=== PATIENT | male | born 1955 | race Caucasian/White ===

== ENCOUNTER 2017-08-28 00:05 | Emergency (ER) | payer OTHER ==
--- NOTE | 2017-08-28 00:40 | ER Document Report ---
ED Cardiac <SMITH RINCON - Last Filed: 08/28/17 08:03> - General Mode of Arrival: Ambulatory Information source: Patient TRAVEL OUTSIDE OF THE [place]. IN LAST 30 DAYS: No <LEE ANN ODELL - Last Filed: 08/31/17 22:08> - General Chief Complaint: Chest Pain Stated Complaint: CHEST PAIN Time Seen by Provider: 08/28/17 00:39 Notes: 62 yo smoker, non htn, non dm, hyperlipedemic, CAD, 2 cardiac stents placed 13 years ago at [facility] (mild [place]), (last cardiac eval 11 years ago) Went to bed at 2130, chest pain, bilateral shoulders to elbows woke him up at 2330. Took 2 - 325 asa, sat around, wouldn't stop. Noticed last week or two gets dizzy when he tilts head back with drink of water. At this time has some tightness superior upper chest below neck. Has had increased fatique and SOB with exertion for 1-2 months. Meds: hctz 25 mg daily, metoprolol 50mg bid, lisinipril 20mg qd, atorvastatin 20mg daily. No recent URI , no fever. No abd pain. Unknown EKG to compare-none done recently. (LEE ANN ODELL) - Related Data Allergies/Adverse Reactions: No Known Allergies Allergy (Unverified 08/28/17 00:24) Past Medical History - Social History Smoking Status: Current Every Day Smoker Lives with: Family Family History: Reviewed & Not Pertinent Patient has suicidal ideation: No Patient has homicidal ideation: No Renal/ Medical History: Denies: Hx Peritoneal Dialysis <LEE ANN ODELL - Last Filed: 08/31/17 22:08> - Vital signs Vitals: Resp Pulse Ox 29 H 96 08/28/17 00:41 08/28/17 00:41 Course - Laboratory Result Diagrams: 08/28/17 00:33 08/28/17 00:33 <SMITH RINCON - Last Filed: 08/28/17 08:03> - Laboratory Result Diagrams: 08/28/17 00:33 08/28/17 00:33 - EKG Interpretation by Me Rate: Normal Rhythm: NSR When compared to previous EKG there are: Previous EKG unavailable <LEE ANN ODELL - Last Filed: 08/31/17 22:08> - Re-evaluation Re-evalutation: 08/28/17 08:03 Patient ambulated to the bathroom without difficulty returns after bm. stable for transport to tertiary care facility (SMITH RINCON) 08/28/17 03:00 pt pain free after the SL ntg so 1 inch paste applied. If patient has to be transferred he prefers to go to [facility]. 08/28/17 04:21 pending the 2nd troponin, chest xray is negative 08/28/17 04:41 Second troponin is 0.093 which is slightly elevated from the first of 0.063. The patient is pain-free. He vomited and will order some Zofran 8 mg ODT and he needs to have a bowel movement. I have placed a page to hospitalist at [facility] for cardiology referral and I am waiting for Dr. Mattson to call me back. EKG Twave inversions not as deep as original EKG which showed twave inversion in inferior and lateral leads. 08/28/17 04:43 dr. mattson the hospitalist at [facility] will call me back after he finds out the bed situation. 08/28/17 05:40 pt has room, CDO, awaiting ALS transport. Dr rubi rec. lovenox 85mg Subcut at this time. 08/28/17 05:51 (LEE ANN ODELL) - Vital Signs Vital signs: Temp Pulse Resp BP Pulse Ox 16 143/91 H 97 08/28/17 08:08 08/28/17 07:58 08/28/17 08:08 - Laboratory Laboratory results interpreted by me: 08/28/17 08/28/17 00:33 00:33 WBC 12.7 H Sodium 136.4 L Carbon Dioxide 20 L Glucose 116 H - EKG Interpretation by Me Additional EKG results interpreted by me: 08/28/17 05:01 t wave inversion inferior , lateral leads. read by dr. rubi (LEE ANN ODELL) Discharge <SMITH RINCON - Last Filed: 08/28/17 08:03> <LEE ANN ODELL - Last Filed: 08/31/17 22:08> - Discharge Clinical Impression: Chest pain Condition: Stable Disposition: [facility]
[2017-08-28 00:54] LABS: ABSOLUTE BASOPHILS # (AUTO) 0.1 10^3/uL (0.0-0.2); ABSOLUTE EOSINOPHILS # (AUTO) 0.3 10^3/uL (0.0-0.6); ABSOLUTE LYMPHOCYTES (AUTO) 3.5 10^3/uL (0.5-4.7); ABSOLUTE MONOCYTES (AUTO) 0.9 10^3/uL (0.1-1.4); BASOPHILS % (AUTO) 0.6 % (0-2); EOSINOPHILS % (AUTO) 2.4 % (0-6); HEMOGLOBIN 14.7 g/dL (13.5-17.0); HGB HCT DIFFERENCE 2.1; LYMPHOCYTES % (AUTO) 27.3 % (13-45); MEAN CORPUSCULAR HEMOGLOBIN 32.8 pg (27.0-33.4); MEAN CORPUSCULAR VOLUME 94 fl (80-97); RED BLOOD COUNT 4.49 10^6/uL (4.35-5.55); RED CELL DISTRIBUTION WIDTH 12.6 % (11.5-14.0); SEGMENTED NEUTROPHILS % (AUTO) 62.7 % (42-78); WHITE BLOOD COUNT 12.7 10^3/uL (4.0-10.5)
[2017-08-28] MEDS ORDERED: NITROGLYCERIN 0.4 MG/TAB 25 TAB/BOTTLE SL PRN (00:56)
[2017-08-28 01:08] LABS: ALANINE AMINOTRANSFERASE 45 U/L (21-72); ALBUMIN 4.2 g/dL (3.5-5.0); ALKALINE PHOSPHATASE 85 U/L (38-126); ANION GAP 15 (5-19); ASPARTATE AMINO TRANSFERASE 22 U/L (17-59); BILIRUBIN,DIRECT 0.4 mg/dL (0.0-0.4); BILIRUBIN,TOTAL 0.4 mg/dL (0.2-1.3); BLOOD UREA NITROGEN 13 mg/dL (7-20); CARBON DIOXIDE 20 mmol/L (22-30); CHLORIDE 101 mmol/L (98-107); CREATINE KINASE 98 U/L (55-170); CREATININE RESULT 0.81 mg/dL (0.52-1.25); GLUCOSE 116 mg/dL (75-110); LIPASE 128.8 U/L (23-300); POTASSIUM 3.8 mmol/L (3.6-5.0); SODIUM 136.4 mmol/L (137-145)
[2017-08-28 01:28] LABS: TROPONIN I 0.063 ng/mL
--- NOTE | 2017-08-28 01:52 | RADIOLOGY REPORT (SQ) ---
EXAM DESCRIPTION: CHEST SINGLE VIEW CLINICAL HISTORY: 62 years, Male, chest pain COMPARISON: Acute chest pain. NUMBER OF VIEWS: 1 TECHNIQUE: Multiple AP chest radiograph technique LIMITATIONS: None. FINDINGS: Size and pulmonary vasculature are normal. Lungs are clear. No pleural effusions or pneumothorax. Bones appear intact on this single view. IMPRESSION: Normal for age portable AP chest radiograph. 2011 [facility] [employer]- All Rights Reserved
[2017-08-28] MEDS ORDERED: NITROGLYCERIN 2% OINTMENT 1 GM PACKET TP ONE ×2 (02:48→02:49)
[2017-08-28] MEDS ORDERED: NITROGLYCERIN 2% OINTMENT 1 GM PACKET ONE (02:53)
[2017-08-28] MEDS ORDERED: ONDANSETRON 4 MG TAB.RAPDIS PO ONE (04:41)
[2017-08-28] MEDS ORDERED: ENOXAPARIN SODIUM INJ 100 MG/1 ML DISP.SYRIN SUBCUT SCH (05:45)
[2017-08-28] MEDS ORDERED: ACETAMINOPHEN 325 MG TABLET PO ONE (06:29)
[2017-08-28] MEDS ORDERED: NORMAL SALINE 1000 ML 1,000 ML IV ONE (06:32)
[2017-08-28] MEDS ORDERED: ENOXAPARIN SODIUM INJ 100 MG/1 ML DISP.SYRIN SUBCUT ONE (06:34)
[2017-08-28 08:11] VITALS: BP 143/91
--- NOTE | 2017-08-28 08:59 | EKG REPORT ---
SEVERITY:- ABNORMAL ECG - SINUS RHYTHM INFERIOR INFARCT, AGE INDETERMINATE : Confirmed by: Mar Troy MD 28-Aug-2017 08:57:57
--- NOTE | 2017-08-28 08:59 | EKG REPORT ---
SEVERITY:- ABNORMAL ECG - SINUS RHYTHM PROBABLE INFERIOR INFARCT, AGE INDETERMINATE : Confirmed by: Mar Troy MD 28-Aug-2017 08:58:23
== END 2017-08-28 08:15 | disposition short-term general hospital (02) ==
LOC: ER 00:05
DX: R07.89 Other chest pain (principal); R11.10 Vomiting, unspecified; R06.02 Shortness of breath; R53.83 Other fatigue; F17.200 Nicotine dependence, unspecified, uncomplicated; I25.10 Atherosclerotic heart disease of native coronary artery without angina pectoris; E78.5 Hyperlipidemia, unspecified; Z95.5 Presence of coronary angioplasty implant and graft; Z79.899 Other long term (current) drug therapy
CPT/HCPCS: 93005; 99285; 96372; 96360; 96361; 36415; 82553; 82550; 83690; 85025; 80053; 84484; 83880; 71010; 93010; S0119; J7030; J1650

== ENCOUNTER 2017-12-10 11:31 | Day surgery (SDC) | payer BC ==
[~2017-12-10 11:31] MED LIST: DIPHENHYDRAMINE HCL 50 MG/ML VIAL ONE; EPINEPHRINE INJ 1 MG/10 ML DISP.SYRIN ONE; FLUMAZENIL INJ 0.5 MG/5 ML VIAL ONE; GLUCAGON,HUMAN RECOMB 1 MG INJ ONE; NALOXONE HCL INJ/PF 0.4 MG/1 ML SDV ONE; ONDANSETRON HCL INJ/PF 4 MG/2 ML SDV ONE
[2017-12-10] MEDS: MIDAZOLAM 2 MG/2 ML INJ ONE ×3 (12:20→12:26)
[2017-12-10] MEDS: FENTANYL CITRATE INJ/PF 100 MCG/2 ML AMPUL ONE ×3 (12:22→12:30)
--- NOTE | 2017-12-10 13:13 | Operative Report ---
Operative Report DATE OF SURGERY: 12/10/17 Operative Report: The risks, benefits and alternatives of the procedure including risks of bleeding, perforation requiring surgery are explained to the patient in detail and informed consent is obtained. Timeout was called. Conscious sedation medications are provided. Patient is placed in a left, lateral decubital position. A rectal examination was done which did not reveal any masses, tears or fissures. An Olympus videoscope was inserted via the patient's rectum, the scope was then carefully advanced all the way to the cecum. The cecum was identified by the usual anatomical landmarks including the ileocecal valve as well as the appendiceal office. Photodocumentation was obtained. Prep is good. The scope was then sequentially pulled back via the various segments of the colon including the ascending colon, hepatic flexure, transverse colon, splenic flexure, descending colon finding to the rectosigmoid portions of the colon. Retroflexion maneuvers performed. PREOPERATIVE DIAGNOSIS: Colorectal cancer screening POSTOPERATIVE DIAGNOSIS: Diverticulosis. Internal hemorrhoids. Full colon polyps removed via snare polypectomy and retrieved. These are noted in the transverse colon, descending colon and sigmoid colon. OPERATION: Colonoscopy with snare polypectomy SURGEON: TARUN SONG ANESTHESIA: Moderate Sedation - 6 mg of Versed, 125 mcg of fentanyl. Conscious sedation monitoring time 30 minutes. TISSUE REMOVED OR ALTERED: As noted above. COMPLICATIONS: None. ESTIMATED BLOOD LOSS: None. INTRAOPERATIVE FINDINGS: As noted above. PROCEDURE: Patient tolerated procedure well. No immediate postprocedure complications are noted. Patient discharged in good condition. Discharge date 12/10/2017. Discharge diet: Regular. Discharge activity: Regular. 2-3 week follow-up to discuss findings. Patient is instructed to call the office or proceed to the emergency room should there be any further problems or questions. Surveillance colonoscopy in 3 years. We will await pathology.
[2017-12-10 13:52] VITALS: BP 136/75
== END 2017-12-10 13:50 | disposition home or self-care (01) ==
LOC: END 11:31
PROVIDERS: ATTEND Internal Medicine Gastroenterology
PROC: 0DBM8ZX Excision of Descending Colon, Via Natural or Artificial Opening Endoscopic, Diagnostic (ICD-10-PCS; 2017-12-10)
PROC: 0DBN8ZX Excision of Sigmoid Colon, Via Natural or Artificial Opening Endoscopic, Diagnostic (ICD-10-PCS; 2017-12-10)
PROC: 0DBL8ZX Excision of Transverse Colon, Via Natural or Artificial Opening Endoscopic, Diagnostic (ICD-10-PCS; principal; 2017-12-10 12:00)
DX: Z12.11 Encounter for screening for malignant neoplasm of colon (principal); K57.30 Diverticulosis of large intestine without perforation or abscess without bleeding; K64.8 Other hemorrhoids; D12.4 Benign neoplasm of descending colon; D12.3 Benign neoplasm of transverse colon; D12.5 Benign neoplasm of sigmoid colon; I10 Essential (primary) hypertension; E78.5 Hyperlipidemia, unspecified; I25.10 Atherosclerotic heart disease of native coronary artery without angina pectoris; N40.1 Benign prostatic hyperplasia with lower urinary tract symptoms; R35.0 Frequency of micturition; F17.210 Nicotine dependence, cigarettes, uncomplicated; Z79.51 Long term (current) use of inhaled steroids; Z79.82 Long term (current) use of aspirin; Z79.899 Other long term (current) drug therapy
CPT/HCPCS: 45385; 88305 ×2; J2250; J3010; J0171; J1200; J1610; J2310; J2405; J3490

== ENCOUNTER 2019-03-11 18:04 | Day surgery (SDC) | payer BC ==
[2019-03-11] MEDS ORDERED: DIPH/PERTUSS(ACELL)/TETANUS VAC/PF 0.5 ML SYR (>=10YO) IM ONE (18:26)
--- NOTE | 2019-03-11 18:27 | ER Document Report ---
ED Medical Screen (RME) - General Chief Complaint: Finger Injury Stated Complaint: HAND LACERATION Time Seen by Provider: 03/11/19 18:23 TRAVEL OUTSIDE OF THE [place] IN LAST 30 DAYS: No - HPI Notes: 03/11/19 18:26 Patient is a 63-year-old male who presents complaining of almost completely cutting off his fifth digit at the PIP joint by a skil saw prior to arrival. Patient states that he immediately washed it and wrapped it. Patient states that his finger was just dangling there by a small piece. Denies CAMPOS, fever, neck pain, URI, CP, SOB, Abd pain, or rash. I have treated and performed a rapid initial assessment of this patient. A comprehensive ED assessment and evaluation of the patient, analysis of test results and completion of medical decision making process will be conducted by additional ED providers. PHYSICAL EXAMINATION: GENERAL: Well-appearing, well-nourished and in no acute distress. A&Ox4. Answers questions appropriately. LUNGS: Breath sounds clear to auscultation bilaterally and equal. No wheezes rales or rhonchi. HEART: Regular rate and rhythm without murmurs, rubs, gallops. Finger: I chose not to pull off the bandage at this time in PIT and we will wait for him to get into a room. I did see the finger in room 10. Approx 50% of his finger is almost completely amputated and not linear. - Related Data Allergies/Adverse Reactions: No Known Allergies Allergy (Verified 03/11/19 18:08) Past Medical History - Past Medical History Cardiac Medical History: Reports: Hx Coronary Artery Disease, Hx Heart Attack - 15 YEARS AGO STENTS X2, Hx Hypercholesterolemia, Hx Hypertension Pulmonary Medical History: Reports: Hx Pneumonia - 15 YRS AGO Denies: Hx Asthma, Hx Bronchitis, Hx COPD Neurological Medical History: Denies: Hx Cerebrovascular Accident, Hx Seizures Renal/ Medical History: Denies: Hx Peritoneal Dialysis Musculoskeltal Medical History: Reports Hx Arthritis Past Surgical History: Reports: Hx Cardiac Catheterization, Hx Coronary Stent - Immunizations Hx Diphtheria, Pertussis, Tetanus Vaccination: No Physical Exam - Vital signs Vitals: Temp Pulse Resp BP Pulse Ox 97.9 F 63 18 152/90 H 100 03/11/19 18:11 03/11/19 18:11 03/11/19 18:11 03/11/19 18:11 03/11/19 18:11 Course - Vital Signs Vital signs: Temp Pulse Resp BP Pulse Ox 97.9 F 63 18 152/90 H 100 03/11/19 18:11 03/11/19 18:11 03/11/19 18:11 03/11/19 18:11 03/11/19 18:11
[2019-03-11] MEDS ORDERED: ONDANSETRON HCL INJ/PF 4 MG/2 ML SDV IV ONE (18:44)
[2019-03-11] MEDS ORDERED: HYDROMORPHONE HCL INJ/PF 2 MG/ML AMPULE IV ONE (18:44)
[2019-03-11] MEDS ORDERED: HYDROMORPHONE HCL INJ/PF 2 MG/ML AMPULE ONE (18:46)
--- NOTE | 2019-03-11 19:01 | RADIOLOGY REPORT (SQ) ---
EXAM DESCRIPTION: HAND RIGHT 3 VIEWS COMPLETED DATE/TIME: 03/11/2019 6:45 pm REASON FOR STUDY: laceration, almost amputated 5th digit COMPARISON: None. EXAM PARAMETERS: NUMBER OF VIEWS: Three views. TECHNIQUE: AP, lateral and oblique radiographic images acquired of the right hand. LIMITATIONS: None. FINDINGS: Overall normal bone density. Near complete amputation of the 5th finger at the level of the middle phalanx. There is a complex la ceration through the skin, soft tissues, and middle phalanx. No radiopaque foreign body. 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 IMPRESSION: Near complete amputation of the right pinky finger at the level of the middle phalanx. TECHNICAL DOCUMENTATION: JOB ID: [id number] [employer]- All Rights Reserved Reading location - IP/workstation name: [email or web address]
--- NOTE | 2019-03-11 19:23 | ER Document Report ---
ED General - General Chief Complaint: Finger Injury Stated Complaint: HAND LACERATION Time Seen by Provider: 03/11/19 18:23 Mode of Arrival: Ambulatory Information source: Patient Notes: 63-year-old male with coronary artery disease presents with a laceration to his right index finger. Patient states that just prior to arrival he was using a circular saw when he accidentally cut his finger. Patient does admit to taking 2 shots of vodka after cutting himself. TRAVEL OUTSIDE OF THE [place] IN LAST 30 DAYS: No - HPI Onset: Just prior to arrival Onset/Duration: Sudden Quality of pain: Throbbing Severity: Severe Pain Level: 4 Associated symptoms: None Exacerbated by: Movement Relieved by: Denies Similar symptoms previously: No Recently seen / treated by doctor: No - Related Data Allergies/Adverse Reactions: No Known Allergies Allergy (Verified 03/11/19 18:08) Past Medical History - General Information source: Patient - Social History Smoking Status: Former Smoker Frequency of alcohol use: None Drug Abuse: None Lives with: Family Family History: Reviewed & Not Pertinent Patient has suicidal ideation: No Patient has homicidal ideation: No - Past Medical History Cardiac Medical History: Reports: Hx Coronary Artery Disease, Hx Heart Attack - 15 YEARS AGO STENTS X2, Hx Hypercholesterolemia, Hx Hypertension Pulmonary Medical History: Reports: Hx Pneumonia - 15 YRS AGO Denies: Hx Asthma, Hx Bronchitis, Hx COPD Neurological Medical History: Denies: Hx Cerebrovascular Accident, Hx Seizures Renal/ Medical History: Denies: Hx Peritoneal Dialysis Musculoskeletal Medical History: Reports Hx Arthritis Past Surgical History: Reports: Hx Cardiac Catheterization, Hx Coronary Stent - Immunizations Hx Diphtheria, Pertussis, Tetanus Vaccination: No Review of Systems - Review of Systems Notes: REVIEW OF SYSTEMS: CONSTITUTIONAL : Denies fever, chills, or sweats. Denies recent illness. Denies weight loss, recent hospitalizations. EENT: Denies visual changes, eye pain. Denies sore throat, oral lesions, difficulty swallowing. CARDIOVASCULAR: Denies chest pain. Denies palpitations. Denies lower extremity edema. RESPIRATORY: Denies cough. Denies shortness of breath, wheezing. GASTROINTESTINAL: Denies abdominal pain or distention. Denies nausea, vomiting, or diarrhea. Denies blood in vomitus, stools, or per rectum. Denies black, tarry stools. Denies constipation. GENITOURINARY: Denies difficulty urinating, painful urination, frequency, blood in urine, testicular pain or penile discharge. MUSCULOSKELETAL: Denies back or neck pain or stiffness. SKIN: + Laceration right index finger HEMATOLOGIC : Denies easy bruising or bleeding. LYMPHATIC: Denies swollen glands. NEUROLOGICAL: Denies confusion or altered mental status. Denies loss of consciousness. Denies dizziness or lightheadedness. Denies headache. Denies weakness or paralysis. Denies problems difficulty with ambulation, slurred s peech. Denies sensory loss, numbness, or tingling. Denies seizures. PSYCHIATRIC: Denies anxiety or stress. Denies depression, suicidal ideation, or Physical Exam - Vital signs Vitals: Temp Pulse Resp BP Pulse Ox 97.9 F 63 18 152/90 H 100 03/11/19 18:11 03/11/19 18:11 03/11/19 18:11 03/11/19 18:11 03/11/19 18:11 - Notes Notes: PHYSICAL EXAMINATION: GENERAL: Well-appearing, well-nourished and in no acute distress. HEAD: Atraumatic, normocephalic. EYES: Pupils equal round and reactive to light, extraocular movements intact, sclera anicteric, conjunctiva are normal. ENT: Nares patent, oropharynx clear without exudates. Moist mucous membranes. NECK: Normal range of motion, supple without lymphadenopathy LUNGS: Breath sounds clear to auscultation bilaterally and equal. No wheezes rales or rhonchi. HEART: Regular rate and rhythm without murmurs ABDOMEN: Soft, nontender, nondistended abdomen. No guarding, no rebound. No masses appreciated. Musculoskeletal: Normal range of motion, no pitting or edema. No cyanosis. 5 cm laceration to the right index finger with bone exposure, active bleeding. Mangled tissue. 1 cm laceration to on the palmar aspect of the right third finger NEUROLOGICAL: Cranial nerves grossly intact. Normal speech, normal gait. PSYCH: Normal mood, normal affect. SKIN: 5 cm laceration to the right index finger with bone exposure, active bleeding. Mangled tissue. 1 cm laceration to the right third finger on the palmar aspect. Course - Re-evaluation Re-evalutation: Laboratory 03/11/19 03/11/19 03/11/19 18:46 18:46 18:46 WBC 11.7 H RBC 4.32 L Hgb 14.5 Hct 40.8 MCV 95 MCH 33.6 H MCHC 35.6 RDW 12.5 Plt Count 242 Seg Neutrophils % 55.1 Lymphocytes % 32.0 Monocytes % 10.9 Eosinophils % 1.7 Basophils % 0.3 Absolute Neutrophils 6.4 Absolute Lymphocytes 3.7 Absolute Monocytes 1.3 Absolute Eosinophils 0.2 Absolute Basophils 0.0 PT 13.4 INR 0.98 APTT 27.9 Sodium 132.9 L Potassium 3.5 L Chloride 103 Carbon Dioxide 17 L Anion Gap 13 BUN 20 Creatinine 0.90 Est GFR ( Amer) > 60 Est GFR (Non-Af Amer) > 60 Glucose 95 Calcium 10.0 Total Bilirubin 0.6 Direct Bilirubin 0.3 Neonat Total Bilirubin Not Reportable Neonat Direct Bilirubin Not Reportable Neonat Indirect Bili Not Reportable AST 30 ALT 29 Alkaline Phosphatase 67 Total Protein 7.6 Albumin 4.4 Hand X-Ray 03/11/19 18:25 IMPRESSION: Near complete amputation of the right pinky finger at the level of the middle phalanx. 63-year-old male presents with a nearly complete amputation of his right fifth finger after a circular saw accident. Patient did receive Ancef, tetanus and Dilaudid for pain during his ED course. Patient has a significant laceration to his right fifth finger and it is dangling, actively bleeding and has poor capillary refill and decreased sensation. digital block was performed and finger and hand were thoroughly irrigated, cleaned with Betadine and loose approximation of the wound was performed. There was arterial bleeding which required cauterization. Patient was placed in a finger splint dressing was applied. Patient was admitted to Dr. Howard orthopedic surgeon on-call. 03/11/19 19:23 Dr. Howard paged for consult. 03/11/19 19:[address] Howard who reviewed the images and recommends loose approximation at admission to the hospital 03/12/19 06:19 - Vital Signs Vital signs: Temp Pulse Resp BP Pulse Ox 98.7 F 61 17 131/58 H 100 03/12/19 00:34 03/12/19 00:34 03/12/19 00:34 03/12/19 00:34 03/12/19 00:34 - Laboratory Result Diagrams: 03/11/19 18:46 03/11/19 18:46 Laboratory results interpreted by me: 03/11/19 03/11/19 18:46 18:46 WBC 11.7 H RBC 4.32 L MCH 33.6 H Sodium 132.9 L Potassium 3.5 L Carbon Dioxide 17 L - Diagnostic Test Radiology reviewed: Image reviewed, Reports reviewed Procedures - Joint Reduction/Fracture Care Right 5th digit Time completed: 06:24 Consent obtained: No Conscious sedation: No Pre-procedure NV exam: Yes - Decreased sensation, delayed capillary refill Fracture: Open Post-procedure NV exam: Yes Post-reduction x-ray: Joint not reduced Complications: No - Laceration/Wound Repair Right 5th digit Time completed: 06:25 Wound length (cm): 5 Wound's Depth, Shape: Irregular, Nail-avulsed, Contused tissue Laceration pre-procedure: Sterile PPE donned, Betadine prep applied, Sterile drapes applied Anesthetic type: 1% Lidocaine Volume Anesthetic (mLs): 10 - Digital block of the right fifth finger was performed Wound explored: No foreign body removed Irrigated w/ Saline (mLs): 1,000 Wound Debrided: Moderate Wound Repaired With: Sutures Suture Size/Type: 4:0, Prolene Number of Sutures: 4 - Simple sutures Post-procedure wound care: Sterile dressing applied, Splint applied Post-procedure NV exam normal: Yes - Decreased sensation, delayed capillary refill Complications: No Critical Care Note - Critical Care Note Total time excluding time spent on procedures (mins): 45 - Minutes of critical care time spent in direct contact evaluating and reevaluating the patient, treating symptoms, reviewing labs and studies and speaking with family and consultants excluding any procedures Discharge - Discharge Clinical Impression: Finger near amputation, right, History of coronary artery disease Condition: Good Disposition: ADMITTED INPATIENT Admitting Provider: Surgicalist - Dr. Howard Unit Admitted: Surgical Floor
[2019-03-11] MEDS ORDERED: CEFAZOLIN 2 GM/D5W RTU 2 GM/50 ML RTUPB IV SCH (19:30)
[2019-03-11] MEDS ORDERED: CEFAZOLIN 1 GM/D5W RTU 2 GM/100 ML RTUPB IV ONE (19:32)
[2019-03-11] MEDS ORDERED: LIDOCAINE 1% INJ (10 MG/ML) 10 ML MDV INJ ONE (19:42)
[2019-03-11 19:44] LABS: ABSOLUTE EOSINOPHILS # (AUTO) 0.2 10^3/uL (0.0-0.6); ABSOLUTE LYMPHOCYTES (AUTO) 3.7 10^3/uL (0.5-4.7); ABSOLUTE MONOCYTES (AUTO) 1.3 10^3/uL (0.1-1.4); ABSOLUTE NEUT (AUTO) 6.4 10^3/uL (1.7-8.2); BASOPHILS % (AUTO) 0.3 % (0-2); EOSINOPHILS % (AUTO) 1.7 % (0-6); HEMATOCRIT 40.8 % (37.9-51.0); HEMOGLOBIN 14.5 g/dL (13.5-17.0); MEAN CORPUSCULAR HEMOGLOBIN 33.6 pg (27.0-33.4); MEAN CORPUSCULAR HGB CONC 35.6 g/dL (32.0-36.0); MEAN CORPUSCULAR VOLUME 95 fl (80-97); MONOCYTES % (AUTO) 10.9 % (3-13); PLATELET COUNT 242 10^3/uL (150-450); RED BLOOD COUNT 4.32 10^6/uL (4.35-5.55); RED CELL DISTRIBUTION WIDTH 12.5 % (11.5-14.0); SEGMENTED NEUTROPHILS % (AUTO) 55.1 % (42-78); TOTAL CELLS COUNTED % (AUTO) 100 %; WHITE BLOOD COUNT 11.7 10^3/uL (4.0-10.5)
[2019-03-11 19:48] LABS: INTERNATIONAL RATION (INR) 0.98; PARTIAL THROMBOPLASTIN TIME 27.9 SEC (23.5-35.8); PROTHROMBIN TIME 13.4 SEC (11.4-15.4)
[2019-03-11] MEDS ORDERED: LIDOCAINE 1% INJ-PF (10 MG/ML) 30 ML SDV INJ ONE (19:49)
[2019-03-11 19:50] LABS: ALANINE AMINOTRANSFERASE 29 U/L (21-72); ALBUMIN 4.4 g/dL (3.5-5.0); ALKALINE PHOSPHATASE 67 U/L (38-126); ANION GAP 13 (5-19); ASPARTATE AMINO TRANSFERASE 30 U/L (17-59); BILIRUBIN,DIRECT 0.3 mg/dL (0.0-0.4); BILIRUBIN,TOTAL 0.6 mg/dL (0.2-1.3); BLOOD UREA NITROGEN 20 mg/dL (7-20); CARBON DIOXIDE 17 mmol/L (22-30); CHLORIDE 103 mmol/L (98-107); GLUCOSE 95 mg/dL (75-110); POTASSIUM 3.5 mmol/L (3.6-5.0); SODIUM 132.9 mmol/L (137-145); TOTAL PROTEIN 7.6 g/dL (6.3-8.2)
--- NOTE | 2019-03-11 21:50 | EKG REPORT ---
SEVERITY:- ABNORMAL ECG - SINUS RHYTHM PROBABLE INFERIOR INFARCT, OLD : Confirmed by: Mar Troy MD 11-Mar-2019 21:50:06
[2019-03-12] MEDS: CEFAZOLIN SODIUM 2 GM in DEXTROSE 5%-WATER 100 ML IV SCH ×2 (00:29→05:23)
--- NOTE | 2019-03-12 07:06 | PDOC H&P ---
History of Present Illness Admission Date/PCP: 03/11/19 19:46 MIGUEL ANGEL HIDALGO MD History of Present Illness: HANNAH GARCIA is a 63 year old male Patient is a 63-year-old [id number] white male who sustained a right small finger injury with a saw blade yesterday on the job. He presented to the emergency room with a largely volar complex laceration of the middle phalanx and distal phalanx of the right small finger. Questionable viability of the fingertip. Past Medical History Cardiac Medical History: Reports: Coronary Artery Disease, Myocardial Infarction - 15 YEARS AGO STENTS X2, Hyperlipidema, Hypertension Pulmonary Medical History: Reports: Pneumonia - 15 YRS AGO Denies: Asthma, Bronchitis, Chronic Obstructive Pulmonary Disease (COPD) Neurological Medical History: Denies: Seizures Musculoskeltal Medical History: Reports: Arthritis Hematology: Denies: Anemia Past Surgical History Past Surgical History: Reports: Cardiac Catheterization, Coronary Stent Social History Information Source: Patient, [facility] Records Lives with: Family Smoking Status: Former Smoker Number of Years Smokin Frequency of Alcohol Use: Occasional Hx Recreational Drug Use: No - Advance Directive Resuscitation Status: Full Code Family History Family History: Reviewed & Not Pertinent Parental Family History Reviewed: No Children Family History Reviewed: No Sibling(s) Family History Reviewed.: No Medication/Allergy Home Medications: Atorvastatin Calcium [Lipitor 20 mg Tablet] 20 mg PO DAILY 03/11/19 Chlorthalidone [Hygroton 25 mg Tablet] 25 mg PO DAILY 03/11/19 Levothyroxine Sodium [Synthroid 0.025 mg Tablet] 0.025 mg PO Q6AM 03/11/19 Lisinopril [Prinivil 10 mg Tablet] 10 mg PO DAILY 03/11/19 Metoprolol Succinate [Toprol Xl 50 mg Tab.sr] 50 mg PO DAILY 03/11/19 Allergies/Adverse Reactions: No Known Allergies Allergy (Verified 03/11/19 18:08) Review of Systems All systems: as per PMH Physical Exam Vital Signs: Temp Pulse Resp BP Pulse Ox 36.8 C 64 17 133/70 H 99 03/12/19 01:49 03/12/19 01:49 03/12/19 01:49 03/12/19 01:49 03/12/19 01:49 Intake & Output 03/11/19 03/12/19 03/13/19 06:59 06:59 06:59 Intake Total 250 Balance 250 Weight 88.5 kg Physical Exam: Disheveled appearing middle-aged white male lying in bed. He is alert oriented and appropriate in cheerful. General appearance: PRESENT: no acute distress, well-developed, well-nourished Head exam: PRESENT: normocephalic Respiratory exam: PRESENT: unlabored Cardiovascular exam: PRESENT: RRR GI/Abdominal exam: PRESENT: soft Rectal exam: PRESENT: deferred Extremities exam: PRESENT: other - Right upper extremity immobilized in a compressive wrap. Digits not exposed I elected not to unwrap it this morning. Photographs from the emergency room demonstrate complex laceration of the volar surface of the middle and distal phalanx and questionable viability of the tip. X-rays demonstrate a complex comminuted fracture of the middle phalanx Neurological exam: PRESENT: alert, awake, oriented to person, oriented to place, oriented to time, oriented to situation. ABSENT: motor sensory deficit Psychiatric exam: PRESENT: appropriate affect, normal mood. ABSENT: homicidal ideation, suicidal ideation Skin exam: PRESENT: dry, intact, warm. ABSENT: cyanosis, rash Results Laboratory Results: 03/11/19 18:46 03/11/19 18:46 03/11/19 03/11/19 03/11/19 18:46 18:46 22:00 WBC 11.7 H RBC 4.32 L Hgb 14.5 Hct 40.8 MCV 95 MCH 33.6 H MCHC 35.6 RDW 12.5 Plt Count 242 Seg Neutrophils % 55.1 Lymphocytes % 32.0 Monocytes % 10.9 Eosinophils % 1.7 Basophils % 0.3 Absolute Neutrophils 6.4 Absolute Lymphocytes 3.7 Absolute Monocytes 1.3 Absolute Eosinophils 0.2 Absolute Basophils 0.0 Sodium 132.9 L Potassium 3.5 L Chloride 103 Carbon Dioxide 17 L Anion Gap 13 BUN 20 Creatinine 0.90 Est GFR ( Amer) > 60 Est GFR (Non-Af Amer) > 60 Glucose 95 Calcium 10.0 Total Bilirubin 0.6 AST 30 ALT 29 Alkaline Phosphatase 67 Total Protein 7.6 Albumin 4.4 Blood Type O POSITIVE Antibody Screen NEGATIVE Impressions: Hand X-Ray 03/11/19 18:25 IMPRESSION: Near complete amputation of the right pinky finger at the level of the middle phalanx. Status: Imported from PACS Assessment & Plan - Diagnosis (1) Finger near amputation, right Is this a current diagnosis for this admission?: Yes Plan: 63-year-old white male with complex laceration of the right small finger that probably will end up being best served with a an amputation. Plan will be to take the patient to the operating room today for I&D and inspection at this viability the fingertip to address the wound and if not to perform a distal amputation of the right small finger. - Time Time Spent: 50 to 70 Minutes Anticipated discharge: Home Within: within 24 hours
[2019-03-12] MEDS ORDERED: ONDANSETRON 4 MG TAB.RAPDIS PO PRN (07:57)
[2019-03-12] MEDS: MORPHINE SULFATE 10 MG/ML INJ IV PRN ×4 (08:12→16:29)
[2019-03-12] MEDS: RINGERS SOLUTION,LACTATED 1,000 ML IV PRN ×2 (08:18→16:26)
[2019-03-12 08:37] LABS: HEMATOCRIT 40.8 % (37.9-51.0); HEMOGLOBIN 14.6 g/dL (13.5-17.0); MEAN CORPUSCULAR HEMOGLOBIN 33.7 pg (27.0-33.4); MEAN CORPUSCULAR HGB CONC 35.9 g/dL (32.0-36.0); MEAN CORPUSCULAR VOLUME 94 fl (80-97); PLATELET COUNT 227 10^3/uL (150-450); RED BLOOD COUNT 4.35 10^6/uL (4.35-5.55); RED CELL DISTRIBUTION WIDTH 12.9 % (11.5-14.0); WHITE BLOOD COUNT 10.7 10^3/uL (4.0-10.5)
[2019-03-12 08:43] LABS: INTERNATIONAL RATION (INR) 0.96; PROTHROMBIN TIME 13.3 SEC (11.4-15.4)
[2019-03-12 08:44] LABS: PARTIAL THROMBOPLASTIN TIME 27.1 SEC (23.5-35.8)
[2019-03-12 09:04] LABS: ANION GAP 11 (5-19); BLOOD UREA NITROGEN 14 mg/dL (7-20); CALCIUM 9.9 mg/dL (8.4-10.2); CARBON DIOXIDE 19 mmol/L (22-30); CHLORIDE 104 mmol/L (98-107); GLUCOSE 101 mg/dL (75-110); POTASSIUM 3.6 mmol/L (3.6-5.0); SODIUM 134.2 mmol/L (137-145)
--- NOTE | 2019-03-12 09:41 | RADIOLOGY REPORT (SQ) ---
EXAM DESCRIPTION: CHEST 2 VIEWS COMPLETED DATE/TIME: 03/12/2019 9:23 am REASON FOR STUDY: pre-op clearance COMPARISON: None. EXAM PARAMETERS: NUMBER OF VIEWS: two views TECHNIQUE: Digital Frontal and Lateral radiographic views of the chest acquired. RADIATION DOSE: NA LIMITATIONS: none FINDINGS: LUNGS AND PLEURA: No opacities, masses or pneumothorax. No pleural effusion. MEDIASTINUM AND HILAR STRUCTURES: No masses or contour abnormalities. HEART AND VASCULAR STRUCTURES: Heart normal size. Status post median sternotomy. No evidence for fa ilure. BONES: Disc degenerative disease of the thoracic spine. HARDWARE: None in the chest. OTHER: No other significant finding. IMPRESSION: No acute abnormality of the lungs. TECHNICAL DOCUMENTATION: JOB ID: [id number] [employer]- All Rights Reserved Reading location - IP/workstation name: [email or web address]
[2019-03-12] MEDS: ASPIRIN 81 MG TABLET, ENT COATED PO SCH (10:35)
[2019-03-12] MEDS: CHLORTHALIDONE 25 MG TABLET PO SCH (11:00)
[2019-03-12] MEDS: METOPROLOL SUCCINATE 50 MG TAB.SR.24H PO SCH (11:01)
[2019-03-12] MEDS: LEVOTHYROXINE SODIUM 0.025 MG TABLET PO SCH (11:01)
[2019-03-12] MEDS: CEFTRIAXONE 2 GM/D5W RTU 2 GM/50 ML RTUPB IV SCH (11:02)
[2019-03-12] MEDS: LISINOPRIL 10 MG TABLET PO SCH (11:05)
--- NOTE | 2019-03-12 15:34 | EKG REPORT ---
SEVERITY:- ABNORMAL ECG - SINUS RHYTHM PROBABLE INFERIOR INFARCT, AGE INDETERMINATE : Confirmed by: Mar Troy MD 12-Mar-2019 15:32:42
--- NOTE | 2019-03-12 20:16 | Progress Note ---
Provider Note Provider Note: 63-year-old male who sustained a table saw injury to his right small finger. Has been started on IV antibiotics. Currently pain control. Physical examination right small finger dressing intact. Cap refill approximately 4 seconds with normal skin turgor. Right small finger open fracture middle phalanx possible tendon, nerve involvement I have discussed findings on radiographs and according to patient's emergency room physician notes and pictures he had available patient has significant soft tissue and bony injury to the small finger and understands the limitations of operative intervention given the likely severe soft tissue compromise of the tendons and underlying neurovascular bundles. Patient understands he may have permanent numbness along with an sensitivity of the digit including stiffness. Option includes also amputation but at this point patient has elected to proceed with maintaining the digit if viable. We will proceed with exploration right small finger with surgery as indicated.
[2019-03-12] MEDS ORDERED: FENTANYL CITRATE INJ/PF 100 MCG/2 ML AMPUL ONE (21:37)
[2019-03-12] MEDS ORDERED: MIDAZOLAM 2 MG/2 ML INJ ONE (21:37)
[2019-03-12] MEDS ORDERED: PROPOFOL INJ 200 MG/20 ML VIAL IV ONE (21:37)
[2019-03-12] MEDS ORDERED: LIDOCAINE 1% INJ-PF (10 MG/ML) 30 ML SDV ONE (21:39)
[2019-03-12] MEDS ORDERED: ATORVASTATIN CALCIUM 20 MG TABLET PO SCH (22:00)
[2019-03-12] MEDS ORDERED: PROMETHAZINE HCL INJ 25 MG/1 ML VIAL IV PRN ×2 (22:14→23:57)
[2019-03-12] MEDS ORDERED: MEPERIDINE HCL/PF INJ 25 MG/1 ML DISP.SYRIN IV PRN ×2 (22:14→23:57)
[2019-03-12] MEDS ORDERED: DIPHENHYDRAMINE HCL 50 MG/ML VIAL IV PRN ×2 (22:14→23:57)
[2019-03-12] MEDS ORDERED: FENTANYL CITRATE INJ/PF 100 MCG/2 ML AMPUL IV PRN ×6 (22:14→23:57)
--- NOTE | 2019-03-12 23:13 | Operative Report ---
Operative Report PREOPERATIVE DIAGNOSIS: Open fracture right small finger with possible tendon involvement. OPERATION: Irrigation of open fracture right small finger middle phalanx with open reduction internal fixation. Repair of zone I FDP tendon laceration SURGEON: SKYE ALLEN ANESTHESIA: GA COMPLICATIONS: None ESTIMATED BLOOD LOSS: Minimal PROCEDURE: Indication for procedure: 63-year-old male who sustained a table saw injury to the right small finger resulting in significant soft tissue injury and bone involvement. Patient was seen at the emergency room and the area was copiously irrigated usually closed the patient was started on antibiotics. Patient was initially seen by my colleague and then signed out to me given the possible involvement and need for amputation. I discussed treatment option with the patient. Initial plan is for digit salvage however patient understands he may develop necrosis necessitating amputation along with significant stiffness, and sensitivity and numbness. Patient verbalized understanding consented for surgical procedure. Procedure In Detail: Patient was seen and evaluated in the preoperative holding area. The upper extremity was initialized and marked. Patient received Rocephin regularly for bacterial prophylaxis. Patient was taken back to the operative room where transferred to the operative table and placed under anesthesia. A surgical team debriefing was performed ensuring all instrumentation was available, the surgical procedure was discussed with possible concerns reviewed. The upper extremity was prepped with Betadine and draped in a sterile fashion. A timeout was done identifying correct patient, procedure and extremity everyone in attendance agree with this and verbalized no concerns. Digital block was per formed with 15 cc of 1% lidocaine without epinephrine. The extremity was elevated and forearm tourniquet placed. Patient had significant laceration in the coronal plane resulting in avulsion of the FDP and FDS tendons. Portion of the radial slip of the FDS tendon remained intact. FDP laceration occurred at the level of the distal phalanx. There was significant soft tissue loss and bone loss of the middle phalanx. Intact radial neurovascular bundle but loss of ulnar neurovascular bundle. There was contamination of the soft tissues. Any nonviable tissue including bone was excised. We was then copiously irrigated with normal saline. Because of a significant bone loss along the proximal aspect the middle phalanx and limits remaining bone of the middle phalanx head transarticular pinning through the DIP joint past the middle phalanx and into the proximal thigh next was performed with 0.045 K wires X2 this provided osseous stability. Wound was once again copious irrigated with normal saline. A 4-0 fiber loop was placed within the FDP tendon in a running type fashion. An additional 4-0 fiber loop was placed as well. With a Brayan needle each limb of the fiber loop was passed into the distal phalanx and out the nail plate. This was then secured into position. Wound was once again irrigated with normal saline. Skin was closed with interrupted 4-0 nylon suture. Tourniquet was deflated. Patient had sluggish capillary refill and skin turgor Distal distal to the MCP joint. However given the significant soft tissue injury anastomosis or revascularization would be of limited use in the situation and thus we will continue to monitor blood flow and the possibility of collateral circulation resulting in perfusion. Wound was dressed with loosely applied Xeroform 4 x 4's and a dorsal blocking splint with the digits in intrinsic plus position. Sponge counts, instrument counts, needle counts were correct. Patient was then awoken from anesthesia. Transferred from the operating room table to the operating room stretcher. There was no intraoperative complications patient tolerated procedure well stable to PACU. Postop plan: We will continue to monitor for effusion. Will obtain x-rays at follow-up visit anticipate continuing K wires for at least 6 weeks postoperatively.
[2019-03-12] MEDS ORDERED: ONDANSETRON HCL INJ/PF 4 MG/2 ML SDV IV PRN (23:57)
[2019-03-13] MEDS: LEVOTHYROXINE SODIUM 0.025 MG TABLET PO SCH (05:12)
[2019-03-13] MEDS: MORPHINE SULFATE 10 MG/ML INJ IV PRN ×2 (05:13→08:44)
--- NOTE | 2019-03-13 07:34 | PDOC DISCHARGE SUMMARY ---
General - Admit/Disc Date/PCP Admission Date/Primary Care Provider: 03/11/19 19:46 MIGUEL ANGEL HIDALGO MD Discharge Date: 03/13/19 - Discharge Diagnosis (1) Finger near amputation, right Is this a current diagnosis for this admission?: Yes - Additional Information Resuscitation Status: Full Code Discharge Activity: No Lifting Over 10 Pounds, No Lifting/Push/Pulling Prescriptions: Amox Tr/Potassium Clavulanate [Augmentin 875-125 mg Tablet] 1 tab PO BID #20 tablet Oxycodone HCl/Acetaminophen [Percocet 5-325 mg Tablet] 1 tab PO Q6 PRN #25 tab PRN Reason: Home Medications: Atorvastatin Calcium [Lipitor 20 mg Tablet] 20 mg PO DAILY 03/11/19 Chlorthalidone [Hygroton 25 mg Tablet] 25 mg PO DAILY 03/11/19 Levothyroxine Sodium [Synthroid 0.025 mg Tablet] 0.025 mg PO Q6AM 03/11/19 Lisinopril [Prinivil 10 mg Tablet] 10 mg PO DAILY 03/11/19 Metoprolol Succinate [Toprol Xl 50 mg Tab.sr] 50 mg PO DAILY 03/11/19 Amox Tr/Potassium Clavulanate [Augmentin 875-125 mg Tablet] 1 tab PO BID #20 tablet 03/12/19 Oxycodone HCl/Acetaminophen [Percocet 5-325 mg Tablet] 1 tab PO Q6 PRN #25 tab 03/12/19 History of Present Illness History of Present Illness: HANNAH GARCIA is a 63 year old male who sustained a saw injury to his right small finger. Patient was seen in the emergency room where was irrigated and loosely closed. Patient was started on IV antibiotics. At that point he was set up for operative intervention including open reduction to fixation versus amputation. Risks and benefits were explained patient verbalized understanding. Was admitted to the orthopedic service to undergo operative intervention the following day. Hospital Course Hospital Course: Patient underwent open reduction to fixation with irrigation debridement flexor tendon repair of his right small finger on 03/12/2019. Patient tolerated procedure well. Postop he was continue on Rocephin. Pain was controlled with IV and p.o. pain medication. Denied fever chills or sweats. Patient progressed throughout his hospital course and decision was made for discharge to home. Physical Exam Vital Signs: Temp Pulse Resp BP Pulse Ox 97.8 F 62 16 153/75 H 99 03/13/19 04:43 03/13/19 04:43 03/13/19 04:43 03/13/19 04:43 03/13/19 04:43 Intake & Output 03/12/19 03/13/19 03/14/19 06:59 06:59 06:59 Intake Total 250 2770 Output Total 5 Balance 250 2765 Weight 88.5 kg 89.8 kg General appearance: PRESENT: no acute distress, well-developed, well-nourished Head exam: PRESENT: atraumatic, normocephalic Eye exam: PRESENT: conjunctiva pink, EOMI, PERRLA. ABSENT: scleral icterus Ear exam: PRESENT: normal external ear exam Mouth exam: PRESENT: moist, tongue midline Neck exam: PRESENT: full ROM. ABSENT: carotid bruit, JVD, lymphadenopathy, thyromegaly Cardiovascular exam: PRESENT: RRR. ABSENT: diastolic murmur, rubs, systolic murmur Pulses: PRESENT: normal dorsalis pedis pul, +2 pedal pulses bilateral Vascular exam: PRESENT: normal capillary refill GI/Abdominal exam: PRESENT: normal bowel sounds, soft. ABSENT: distended, guarding, mass, organolmegaly, rebound, tenderness Rectal exam: PRESENT: deferred Musculoskeletal exam: PRESENT: other - Right small finger: Dressing clean/dry/intact. Patient has suboptimal skin turgor however intact. Delayed capillary refill bright red blood bleeding from the pin sites distally. Hypoesthesias on the distal tip. Neurological exam: PRESENT: alert, awake, oriented to person, oriented to place, oriented to time, oriented to situation, CN II-XII grossly intact. ABSENT: motor sensory deficit Psychiatric exam: PRESENT: appropriate affect, normal mood. ABSENT: homicidal ideation, suicidal ideation Skin exam: PRESENT: dry, intact, warm. ABSENT: cyanosis, rash Results Laboratory Results: 03/12/19 08:10 03/12/19 08:10 03/12/19 03/12/19 08:10 08:10 WBC 10.7 H RBC 4.35 Hgb 14.6 Hct 40.8 MCV 94 MCH 33.7 H MCHC 35.9 RDW 12.9 Plt Count 227 Sodium 134.2 L Potassium 3.6 Chloride 104 Carbon Dioxide 19 L Anion Gap 11 BUN 14 Creatinine 0.77 Est GFR ( Amer) > 60 Est GFR (Non-Af Amer) > 60 Glucose 101 Calcium 9.9 Impressions: Hand X-Ray 03/11/19 18:25 IMPRESSION: Near complete amputation of the right pinky finger at the level of the middle phalanx. Chest X-Ray 03/12/19 07:33 IMPRESSION: No acute abnormality of the lungs. Qualifiers - * PATIENT BEING DISCHARGED WITH ANY OF THE FOLLOWING DIAGNOSIS: No VTE patient discharged on overlapping Therapy?: No Plan Discharge Plan: Patient to follow-up in [place] on 03/19/2019 for recheck. We discussed the issue of vascularity and the possible need for amputation. Patient understands he may require amputation which may include MP or PIP joint disarticulation pending vascularity. On examination there was evidence of bleeding along the distal tip however sluggish capillary refill with suboptimal skin turgor. At this point after discussing his options we will discharge him home to allow vascularity area to demarcate itself. If patient notices increasing pain, fever chills or drainage he will contact our office or return to the emergency room. Patient will continue on Augmentin along with Percocet as needed for pain. Patient was read instructions understood above instructions and his orthopedist here for discharge to home.
--- NOTE | 2019-03-13 08:31 | RADIOLOGY REPORT (SQ) ---
EXAM DESCRIPTION: FINGER RIGHT; NO CHG FLUORO COMPLETED DATE/TIME: 03/12/2019 11:01 pm REASON FOR STUDY: ORIF PERC PINNING COMPARISON: Right hand films 03/11/2019 FLUOROSCOPY TIME: 33 seconds 2 digital C-arm images saved to PACS. TECHNIQUE: Intra-operative images acquired during surgical procedure to evaluate progress. NUMBER OF IMAGES: 2 digital C-arm images LIMITATIONS: None. FINDINGS: 2 digital C-arm images are submitted during pinning of a comminuted right 5th finger middl e phalanx fracture. Please see the operative report for further details IMPRESSION: IMAGE(S) OBTAINED DURING PROCEDURE. COMMENT: Quality ID [id number]: Final reports for procedures using fluoroscopy that document radiation exp osure indices, or exposure time and number of fluorographic images (if radiation exposure indices are not available) Please consult full operative report of the attending physician for description of the procedure. TECHNICAL DOCUMENTATION: JOB ID: [id number] [employer]- All Rights Reserved Reading location - IP/workstation name: [email or web address]
--- NOTE | 2019-03-13 08:31 | RADIOLOGY REPORT (SQ) ---
EXAM DESCRIPTION: FINGER RIGHT; NO CHG FLUORO COMPLETED DATE/TIME: 03/12/2019 11:01 pm REASON FOR STUDY: ORIF PERC PINNING COMPARISON: Right hand films 03/11/2019 FLUOROSCOPY TIME: 33 seconds 2 digital C-arm images saved to PACS. TECHNIQUE: Intra-operative images acquired during surgical procedure to evaluate progress. NUMBER OF IMAGES: 2 digital C-arm images LIMITATIONS: None. FINDINGS: 2 digital C-arm images are submitted during pinning of a comminuted right 5th finger middl e phalanx fracture. Please see the operative report for further details IMPRESSION: IMAGE(S) OBTAINED DURING PROCEDURE. COMMENT: Quality ID [id number]: Final reports for procedures using fluoroscopy that document radiation exp osure indices, or exposure time and number of fluorographic images (if radiation exposure indices are not available) Please consult full operative report of the attending physician for description of the procedure. TECHNICAL DOCUMENTATION: JOB ID: [id number] [employer]- All Rights Reserved Reading location - IP/workstation name: [email or web address]
[2019-03-13] MEDS: LISINOPRIL 10 MG TABLET PO SCH (08:44)
[2019-03-13] MEDS: METOPROLOL SUCCINATE 50 MG TAB.SR.24H PO SCH (08:44)
[2019-03-13] MEDS: ASPIRIN 81 MG TABLET, ENT COATED PO SCH (08:44)
[2019-03-13] MEDS: CHLORTHALIDONE 25 MG TABLET PO SCH (08:45)
[2019-03-13] MEDS: CEFTRIAXONE 2 GM/D5W RTU 2 GM/50 ML RTUPB IV SCH (10:00)
[2019-03-13 10:15] VITALS: BP 171/96
== END 2019-03-13 11:14 | disposition home or self-care (01) ==
LOC: ER 18:04 → EH 19:46 → OROUT 19:46 → UNDOADMIN 19:46 → 4S 03-12 02:07 → EH 03-12 02:07 → UNDODISIN 03-13 11:14 → OROUT 03-13 11:14
PROVIDERS: ATTEND Orthopaedic Surgery
DX: S62.626A Displaced fracture of middle phalanx of right little finger, initial encounter for closed fracture (principal); S66.126A Laceration of flexor muscle, fascia and tendon of right little finger at wrist and hand level, initial encounter; S61.210A Laceration without foreign body of right index finger without damage to nail, initial encounter; W31.2XXA Contact with powered woodworking and forming machines, initial encounter; I25.10 Atherosclerotic heart disease of native coronary artery without angina pectoris; I25.2 Old myocardial infarction; E78.5 Hyperlipidemia, unspecified; E78.00 Pure hypercholesterolemia, unspecified; I10 Essential (primary) hypertension; Z87.891 Personal history of nicotine dependence; Z95.5 Presence of coronary angioplasty implant and graft; Z23 Encounter for immunization; Z79.899 Other long term (current) drug therapy
CPT/HCPCS: 93005 ×2; 99291; 90471; 96374; 96375; 86900; 86901; 36415 ×2; 87040; 86850; 85025; 85027; 85610 ×2; 85730 ×2; 87077; 80048; 80053; 87186; 71046; 73140; 73130; 90715; 93010 ×2; 01830; 26725; 26735; C1713; J2250; J0690 ×2; J3010; J3490; J2270 ×2; J1170; J2405; J7060; J7120; J2704; J0696

== ENCOUNTER 2019-04-17 12:26 | Day surgery (SDC) | payer BC ==
[~2019-04-17 12:26] MED LIST changes: +CEFAZOLIN 2 GM/D5W RTU 2 GM/50 ML RTUPB IV ONE; +CEFAZOLIN 2 GM/D5W RTU 2 GM/50 ML RTUPB IV PRN; -DIPHENHYDRAMINE HCL 50 MG/ML VIAL ONE; -EPINEPHRINE INJ 1 MG/10 ML DISP.SYRIN ONE; -FLUMAZENIL INJ 0.5 MG/5 ML VIAL ONE; -GLUCAGON,HUMAN RECOMB 1 MG INJ ONE; -NALOXONE HCL INJ/PF 0.4 MG/1 ML SDV ONE; -ONDANSETRON HCL INJ/PF 4 MG/2 ML SDV ONE
--- NOTE | 2019-04-17 13:26 | RADIOLOGY REPORT (SQ) ---
EXAM DESCRIPTION: CHEST SINGLE VIEW COMPLETED DATE/TIME: 04/17/2019 1:03 pm REASON FOR STUDY: PRE OP COMPARISON: Two-view chest 03/12/2019, 08/28/2017 EXAM PARAMETERS: NUMBER OF VIEWS: One view. TECHNIQUE: Single frontal radiographic view of the chest acquired. RADIATION DOSE: NA LIMITATIONS: None. FINDINGS: LUNGS AND PLEURA: No opacities, masses or pneumothorax. No pleural effusion. MEDIASTINUM AND HILAR STRUCTURES: No masses. Contour normal. HEART AND VASCULAR STRUCTURES: Old sternotomy for CABG. No cardiomegaly BONES: Old healed right and left anterior rib fractures HARDWARE: None in the chest. OTHER: No other significant finding. IMPRESSION: Old sternotomy for CABG. No acute findings TECHNICAL DOCUMENTATION: JOB ID: [id number] [employer]- All Rights Reserved Reading location - IP/workstation name: [email or web address]
[2019-04-17 13:30] LABS: ABSOLUTE BASOPHILS # (AUTO) 0.1 10^3/uL (0.0-0.2); ABSOLUTE EOSINOPHILS # (AUTO) 0.2 10^3/uL (0.0-0.6); ABSOLUTE LYMPHOCYTES (AUTO) 2.9 10^3/uL (0.5-4.7); ABSOLUTE MONOCYTES (AUTO) 0.9 10^3/uL (0.1-1.4); ABSOLUTE NEUT (AUTO) 6.5 10^3/uL (1.7-8.2); BASOPHILS % (AUTO) 0.5 % (0-2); EOSINOPHILS % (AUTO) 1.5 % (0-6); HEMATOCRIT 44.2 % (37.9-51.0); HEMOGLOBIN 15.2 g/dL (13.5-17.0); LYMPHOCYTES % (AUTO) 27.7 % (13-45); MEAN CORPUSCULAR HEMOGLOBIN 32.8 pg (27.0-33.4); MEAN CORPUSCULAR HGB CONC 34.4 g/dL (32.0-36.0); MEAN CORPUSCULAR VOLUME 95 fl (80-97); MONOCYTES % (AUTO) 8.9 % (3-13); PLATELET COUNT 218 10^3/uL (150-450); RED BLOOD COUNT 4.63 10^6/uL (4.35-5.55); RED CELL DISTRIBUTION WIDTH 13.2 % (11.5-14.0); SEGMENTED NEUTROPHILS % (AUTO) 61.4 % (42-78); TOTAL CELLS COUNTED % (AUTO) 100 %; WHITE BLOOD COUNT 10.5 10^3/uL (4.0-10.5)
[2019-04-17 13:48] LABS: ANION GAP 14 (5-19); BLOOD UREA NITROGEN 24 mg/dL (7-20); CALCIUM 9.9 mg/dL (8.4-10.2); CARBON DIOXIDE 18 mmol/L (22-30); CHLORIDE 108 mmol/L (98-107); GLUCOSE 87 mg/dL (75-110); POTASSIUM 3.7 mmol/L (3.6-5.0)
[2019-04-17] MEDS ORDERED: SUCCINYLCHOLINE CHLORIDE INJ 200 MG/10 ML VIAL ONE (14:46)
[2019-04-17] MEDS ORDERED: FENTANYL CITRATE INJ/PF 100 MCG/2 ML AMPUL ONE ×2 (14:47→16:32)
[2019-04-17] MEDS ORDERED: DEXAMETHASONE SOD PHOSPHATE INJ 4 MG/1 ML VIAL ONE (14:48)
[2019-04-17] MEDS ORDERED: MIDAZOLAM 2 MG/2 ML INJ ONE (14:48)
[2019-04-17] MEDS ORDERED: ONDANSETRON HCL INJ/PF 4 MG/2 ML SDV ONE (14:48)
[2019-04-17] MEDS ORDERED: PROPOFOL INJ 200 MG/20 ML VIAL IV ONE (14:48)
[2019-04-17] MEDS ORDERED: BUPIVACAINE HCL 0.5 % INJ/PF 30 ML SDV ONE (15:05)
[2019-04-17] MEDS ORDERED: MORPHINE SULFATE 10 MG/ML INJ IV PRN ×2 (15:54→16:50)
[2019-04-17] MEDS ORDERED: DIPHENHYDRAMINE HCL 50 MG/ML VIAL IV PRN (15:54)
[2019-04-17] MEDS ORDERED: FENTANYL CITRATE INJ/PF 100 MCG/2 ML AMPUL IV PRN ×3 (15:54)
[2019-04-17] MEDS ORDERED: MEPERIDINE HCL/PF INJ 25 MG/1 ML DISP.SYRIN IV PRN (15:54)
[2019-04-17] MEDS ORDERED: PROMETHAZINE HCL INJ 25 MG/1 ML VIAL IV PRN ×2 (15:54)
[2019-04-17] MEDS ORDERED: ONDANSETRON HCL INJ/PF 4 MG/2 ML SDV IV PRN ×2 (15:54→16:50)
[2019-04-17] MEDS ORDERED: OXYCODONE-ACETAMINOPHEN 5-325 MG TABLET PO PRN (16:50)
--- NOTE | 2019-04-17 16:51 | Operative Report ---
Operative Report DATE OF SURGERY: 04/17/19 PREOPERATIVE DIAGNOSIS: Necrosis right fifth digit proximal phalanx status post open fracture. POSTOPERATIVE DIAGNOSIS: Same OPERATION: Right fifth ray resection with neurectomies SURGEON: SKYE ALLEN ANESTHESIA: GA COMPLICATIONS: None ESTIMATED BLOOD LOSS: Minimal PROCEDURE: Indication for above procedure: Pleasant 63-year-old male who intermittently sustained a table saw injury to his right hand. Patient underwent irrigation debridement with percutaneous pinning and closure of the digit unfortunately as time progressed patient continued to have necrosis on the distal tip which progressed in a proximal direction. At that point decision was made to proceed with fifth ray resection given the amount of necrosis interphalangeal disarticulation was likely to be unsuccessful. Procedure In Detail: Patient was seen and evaluated in the preoperative holding area. The RIGHT upper extremity was initialized and marked. Patient received 2g of Ancef IV for bacterial prophylaxis. Patient was taken back to the operative room where transferred to the operative table and placed under general anesthesia. Once they were adequately anesthetized a nonsterile tourniquet was placed on the upper extremity. A surgical team debriefing was performed ensuring all instrumentation was available, the surgical procedure was discussed with possible concerns reviewed. The upper extremity Betadine and draped in a sterile fashion. A timeout was done identifying correct patient, procedure and extremity everyone in attendance agree with this and verbalized no concerns. The extremity was exs elevated the tourniquet was inflated to 250 mmHg. [place] shaped skin incision with longitudinal incision dorsally was made. Blunt dissection was performed extensor tendon and flexor tendons were then released exposing the fifth MCP joint. Fifth MCP joint was amputated releasing the radial and ulnar collateral ligaments. Radial and ulnar neurovascular bundles were identified. Once the MCP joint was disarticulated sharp dissection was performed releasing the intraosseous muscles and abductor digiti mini from the fifth metacarpal. Wound was copiously irrigated with normal saline. With a saw oscillating saw an oblique osteotomy was made along the proximal aspect of the fifth metacarpal distal to the insertion of the ECU and FCU. Once the fifth metacarpal was excised the radial and ulnar neurovascular bundles were isolated and neurectomy was performed with the nerve ends buried into the hypo- thenar musculature. Digital arteries were coagulated with bipolar cautery. Wound was copiously irrigated with normal saline. Soft tissue was then reapproximated with 3-0 Vicryl suture to cover the fifth metacarpal to avoid irritation from the bony prominence. Tourniquet was then deflated. Any peripheral bleeding was controlled with bipolar cautery. Subcutaneous tissues were closed with interrupted 4-0 Monocryl suture. Skin was closed with interrupted 3-0 nylon suture. 20 cc of 0.5% bupivacaine without epinephrine was injected for postoperative pain control. Wound was dressed Xer oform 4 x 4's and a soft dressing. Sponge counts, instrument counts, needle counts were correct. Patient was then awoken from anesthesia. Transferred from the operating room table to the operating room stretcher. There was no intraoperative complications patient tolerated procedure well stable to PACU. Postoperative plan: Patient follow-up the office in 2 weeks for wound check. We will begin range of motion initially but no lifting.
--- NOTE | 2019-04-17 16:51 | Discharge Summary ---
Discharge Summary (SDC) - Discharge Final Diagnosis: Status post right fifth ray resection Date of Surgery: 04/17/19 Discharge Date: 04/17/19 Condition: Good Treatment or Instructions: Schedule Follow Up w/ Dr. Henri Das @ [facility] to be seen in 10-14 days or as scheduled [place]: [place]: [place]: May remove dressing on postop day #3, keep incision covered and dry. Ice and elevate May begin finger range of motion attempting to make full fist. Stool softener of choice when on pain medication. USE OF NPVA-OVN-RIPDPMO IBUPROFEN: Ibuprofen (Advil, Nuprin, Medipren, Motrin IB) is a medication for fever and pain control. In addition, it has anti- inflammatory effects which may be beneficial, especially in the treatment of injuries. It's best to take ibuprofen with food. Persons with ulcer disease or allergy to aspirin should notify their physician of this before taking ibuprofen. Ibuprofen can be given every four to six hours, for a total of four doses daily. Age Pain or fever dose Antiinflammatory dose 6-8 yr 200 mg (1 tab) 200 mg (1 tab) 9-11 yr 200 mg (1 tab) 200-400 mg (1-2 tab) 11-14 yr 200-400 mg (1-2 tab) 400 mg (2 tab) 15-adult 400 mg (2 tab) 600 mg (3 tab) ORAL NARCOTIC MEDICATION: You have been given a prescription for pain control. This medication is a narcotic. It's best taken with food, as nausea can result if taken on an empty stomach. Don't operate machinery or drive within six hours of taking this medication. Do not combine this medicine with alcohol, or with any medication which can cause sedation (such as cold tablets or sleeping pills) unless you get permission from the physician. Narcotics tend to cause constipation. If possible, drink plenty of fluids and eat a diet high in fiber and fruits. Please be aware that prescription narcotics also have the potential for abuse. People become addicted to these medications because of the general sense of wellbeing that they induce. This feeling along with a significant reduction in tension, anxiety, and aggression provides a stimulating seductive quality to these drugs. Once your pain is under control, we encourage you to discard your unused narcotics. Prescriptions: Oxycodone HCl/Acetaminophen [Percocet 5-325 mg Tablet] 1 tab PO Q6 #25 tab Referrals: MIGUEL ANGEL HIDALGO MD [Primary Care Provider] - Discharge Diet: As Tolerated Respiratory Treatments at Home: Deep Breathing/Coughing Discharge Activity: No Lifting Over 10 Pounds, No Lifting/Push/Pulling Report the Following to Your Physician Immediately: Fever over 101 Degrees, Unusual Bleeding, Redness, Swelling, Warmth, Increased Soreness
[2019-04-17 18:59] VITALS: BP 134/78
--- NOTE | 2019-04-18 12:38 | EKG REPORT ---
SEVERITY:- ABNORMAL ECG - SINUS RHYTHM PROBABLE INFERIOR INFARCT, AGE INDETERMINATE : Confirmed by: Shekhar Stewart 18-Apr-2019 12:38:10
== END 2019-04-17 18:55 | disposition home or self-care (01) ==
LOC: OROUT 12:26
PROVIDERS: ATTEND Orthopaedic Surgery
DX: M87.24 Osteonecrosis due to previous trauma, hand and fingers (principal); S68.626D Partial traumatic transphalangeal amputation of right little finger, subsequent encounter; W31.2XXD Contact with powered woodworking and forming machines, subsequent encounter; E78.00 Pure hypercholesterolemia, unspecified; I10 Essential (primary) hypertension; I25.2 Old myocardial infarction; I25.10 Atherosclerotic heart disease of native coronary artery without angina pectoris; E03.9 Hypothyroidism, unspecified; E78.5 Hyperlipidemia, unspecified; R73.9 Hyperglycemia, unspecified; Z79.82 Long term (current) use of aspirin; Z79.899 Other long term (current) drug therapy
CPT/HCPCS: 36415; 85025; 80048; 88304 ×2; 71045; 93005; 93010; 26910; J2250; J3490; J1100; J3010; J0330; J2405; J2704; J0690; 1830